=== PATIENT | male | born 1960 | race Caucasian/White ===

== ENCOUNTER → 2020-07-11 | Outpatient (CLI) | payer OTHER ==
[~2020-07-11] MED LIST: NOHOMEMEDICATIONS
== END ==
LOC: M.LAB 10:41
PROVIDERS: ATTEND Surgery
DX: Z01.812 Encounter for preprocedural laboratory examination (principal); Z20.828 Contact with and (suspected) exposure to other viral communicable diseases; K42.9 Umbilical hernia without obstruction or gangrene

== ENCOUNTER → 2020-07-14 | Day surgery (SDC) | payer OTHER ==
[2020-07-14 07:01] LABS: HEMATOCRIT 41.2 % (42.0-52.0); HEMOGLOBIN 14.2 gm/dL (14.0-18.0); MCH 30.1 pg (26.0-34.0); MCHC 34.5 g/dL (28.0-37.0); MPV 6.7 fl. (7.2-11.1); RBC 4.74 mil/uL (4.50-6.00); RDW-CV 13.4 % (10.5-14.5); WBC 7.8 thou/uL (4.0-11.0)
[2020-07-14 07:16] LABS: CALCIUM 8.4 mg/dL (8.5-10.1); POTASSIUM 3.6 mmol/L (3.5-5.1)
--- NOTE | 2020-07-14 18:01 | EKG ---
[place] [address] ELECTROCARDIOGRAM REPORT Name: EKATERINA CARTWRIGHT Room: [facility]#: [id number] Admission: 07/14/20 Attend Phys: Hill Pepe Discharge: Date of : 64 Date of Service: 07/14/20721 Report #: [id number] THIS REPORT FOR: //name// [facility] Test Date: 2020-07-14 Test Time: 07:22:41 Pat Name: EKATERINA CARTWRIGHT Department: Room: Gender: [employer] Chief: : 1960 Requested By: Hill Fitzgerald Order Number: [id number] MD: Donis Piper Measurements Intervals [place] Rate: 68 P: 0 CA: 197 QRS: 12 QRSD: 97 T: 57 QT: 385 QTc: 410 Interpretive Statements Sinus rhythm No previous ECG available for comparison Electronically Signed On 07-14-2020 18:01:00 LEATHER COVERER by Donis Piper [email or web address] <ELECTRONICALLY SIGNED> By: Donis Piper MD, [facility] 07/14/20 180 1 1 Donis Piper MD, FACC /EPI
--- NOTE | 2020-07-27 11:07 | OP ---
[facility] [address] [place] [address] OPERATIVE REPORT Name: EKATERINA CARTWRIGHT Room: [facility].#: [id number] Admission: 07/14/20 Attend Phys: Hill Fitzgerald Discharge: Date of : 64 Report #: [id number] THIS REPORT FOR: cc: Hill Fitzgerald MD, William MD ~ Hill Fitzgerald MD CC: Hill Case DATE OF SERVICE: 07/14/2020 PREOPERATIVE DIAGNOSIS: Incarcerated umbilical hernia. POSTOPERATIVE DIAGNOSIS: Incarcerated umbilical hernia. OPERATION: Laparoscopic repair of incarcerated umbilical hernia with mesh. SURGEON: Hill Fitzgerald MD ANESTHESIA: General. ESTIMATED BLOOD LOSS: Minimal. SPECIMEN: None. DESCRIPTION OF PROCEDURE: After informed consent was obtained, the patient was brought to the operating room and placed supine. SCDs were placed and working, preoperative antibiotics were administered, general anesthesia was induced. The abdomen was prepped and draped in the usual sterile fashion. A 5 mm incision was made in the left upper quadrant. A 5 mm trocar was placed under direct vision. Pneumoperitoneum was established. A left-sided 8 mm trocar and a right-sided 5 mm trocar was placed. The patient had a 1 cm umbilical hernia defect. He had incarcerated preperitoneal fat. The sac was fully dissected out and reduced. An 11 cm Bard Ventralight mesh was inserted. It was tacked up to the abdominal wall to completely cover the defect widely. A transfascial 2-0 Ethibond suture was placed at the inferior aspect of the mesh using a PMI suture passer. The ports were then removed under direct vision. The skin was closed with 4-0 Monocryl. Incisions were sealed with Dermabond. COMPLICATIONS: None. DISPOSITION: The patient was taken to recovery in satisfactory condition. <ELECTRONICALLY SIGNED> By: Hill Fitzgerald MD 07/27/20 [id number] Fitzgerald MD /nt
== END | disposition home or self-care (01) ==
LOC: M.SUR 06:10
PROVIDERS: ATTEND Surgery
DX: K42.0 Umbilical hernia with obstruction, without gangrene (principal); G43.909 Migraine, unspecified, not intractable, without status migrainosus; G47.30 Sleep apnea, unspecified; Z98.890 Other specified postprocedural states; Z79.899 Other long term (current) drug therapy; Z88.8 Allergy status to other drugs, medicaments and biological substances